=== PATIENT | male | born 1950 | race Caucasian/White ===

== ENCOUNTER 2023-11-24 13:13 | Emergency (ER) | payer MEDICARE, BC ==
[~2023-11-24] VITALS: Ht 182.9 cm; Wt 83.9 kg
[~2023-11-24 13:13] MED LIST: ALPR0.5T8 PO; HYDR-3980 PO; LEVO88TA5 PO; PRAV20TA4 PO; TAMS-3 PO; TRAZ-257 PO
[2023-11-24 14:06] LABS: BASOPHILS # (AUTO) 0.2 K/UL (0.0-0.2); BASOPHILS % (AUTO) 1.3 % (0.0-2.0); EOSINOPHILS # (AUTO) 0.3 K/uL (0.0-0.7); EOSINOPHILS % (AUTO) 2.5 % (0.0-7.0); HEMATOCRIT 44.1 % (36.7-47.1); HEMOGLOBIN 14.5 g/dL (12.5-16.3); LYMPHOCYTES # (AUTO) 0.6 K/uL (0.8-4.8); LYMPHOCYTES % (AUTO) 4.7 % (20.5-51.5); MEAN CORPUSCULAR HEMOGLOBIN 30.2 uug (23.8-33.4); MEAN CORPUSCULAR HGB CONC 33 g/dL (32.5-36.3); MEAN CORPUSCULAR VOLUME 91.8 fL (73.0-96.2); MONOCYTES # (AUTO) 0.4 K/uL (0.1-1.30); MONOCYTES % (AUTO) 3.4 % (0.0-11.0); NEUTROPHILS % (AUTO) 88.1 % (38.5-71.5); PLATELET COUNT (AUTO) 199 K/uL (152-348); RED BLOOD CELL COUNT(AUTO) 4.81 MIL/uL (4.06-5.63); RED CELL DISTRIBUTION WIDTH 13.6 % (12.1-16.2); WHITE BLOOD COUNT (AUTO) 12.5 K/uL (3.6-10.2)
[2023-11-24 14:09] LABS: *BILIRUBIN,URIN NEGATIVE (NEGATIVE); *BLOOD, URINE NEGATIVE (NEGATIVE); *CLARITY,URINE CLEAR (CLEAR); *COLOR,URINE YELLOW (YELLOW); *KETONES,URINE NEGATIVE (NEGATIVE); *PROTEIN,URINE NEGATIVE (NEGATIVE); *UROBILINOGEN,URINE 0.2 E.U./dl (NORMAL); LEUKOCYTE ESTERASE ,URINE NEGATIVE (NEGATIVE); NITRITE, URINE NEGATIVE (NEGATIVE); PH,URINE 5.5 (5.0-8.0); UGLUCOSE NEGATIVE (NEGATIVE)
[2023-11-24 14:10] LABS: DIFFERENTIAL COMMENT 1
[2023-11-24 14:11] LABS: CALCIUM 8.8 mg/dL (8.5-10.1); CARBON DIOXIDE 27 mmol/L (21-32); CHLORIDE 103 mmol/L (98-107); CREATININE 0.8 mg/dL (0.6-1.3); GLUCOSE 104 mg/dL (74-106); POTASSIUM 3.9 mmol/L (3.5-5.1); SODIUM SERUM 138 mmol/L (136-145); UREA NITROGEN, BLOOD 21 mg/dL (7-18)
[2023-11-24] MEDS ORDERED: FLEET ENEMA 133 ML BOTTLE RC ONE (15:51)
[2023-11-24] MEDS: MAGNESIUM CITRATE 296 ML BOTTLE PO ONE (15:58)
[2023-11-24] MEDS: FLEET ENEMA 133 ML BOTTLE RC ONE (15:58)
[2023-11-24] MEDS ORDERED: NEOMY/BACITRA/POLYMYXIN B OINT UD PACKET TP ONE (16:19)
[2023-11-24] MEDS: NEOMY/BACITRA/POLYMYXIN B OINT UD PACKET TP ONE (16:20)
[2023-11-24 16:44] VITALS: BP 136/74; TEMP 98.1; O2SAT 97
== END 2023-11-24 16:45 | disposition home or self-care (01) ==
LOC: ER 13:13
DX: R33.9 Retention of urine, unspecified (principal); K59.00 Constipation, unspecified; E78.5 Hyperlipidemia, unspecified; E03.9 Hypothyroidism, unspecified; Z90.49 Acquired absence of other specified parts of digestive tract; Z79.899 Other long term (current) drug therapy
CPT/HCPCS: 36415; 51702; 85025; A4606; A4663